=== PATIENT | female | born 1950 | race Caucasian/White ===

== ENCOUNTER 2018-12-01 12:07 | Emergency (ER) | payer OTHER, MEDICAID ==
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
[2018-12-01 14:22] VITALS: BP 112/84
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
== END 2018-12-01 14:22 | disposition home or self-care (01) ==
DX: S20.212A Contusion of left front wall of thorax, initial encounter (principal); S20.211A Contusion of right front wall of thorax, initial encounter; R07.81 Pleurodynia; F17.200 Nicotine dependence, unspecified, uncomplicated; Y04.8XXA Assault by other bodily force, initial encounter; Y99.9 Unspecified external cause status; Z59.0 Homelessness